=== PATIENT | female | born 1985 | race American Indian/Alaskan Native ===

== ENCOUNTER 2017-09-06 21:01 | Outpatient (CLI) | payer MEDICAID ==
[2017-09-06 21:27] VITALS: BP 99/62
== END 2017-09-06 22:35 | disposition home or self-care (01) ==
LOC: TRG 21:01
PROVIDERS: ATTEND Obstetrics & Gynecology
DX: O26.893 Other specified pregnancy related conditions, third trimester (principal); M54.9 Dorsalgia, unspecified; M25.551 Pain in right hip; Z3A.39 39 weeks gestation of pregnancy